=== PATIENT | male | born 1960 | race Caucasian/White ===

== ENCOUNTER → 2016-12-16 | Outpatient (CLI) | payer BC | LOC: MW.CHFP 13:14 | PROVIDERS: ATTEND Emergency Medicine | DX: M17.11 Unilateral primary osteoarthritis, right knee (principal) | CPT/HCPCS: 36415; 85027 ==

== ENCOUNTER 2017-06-17 10:51 | Day surgery (SDC) | payer BC ==
[~2017-06-17 10:51] MED LIST: Lactated Ringers 1,000 ML IV SCH; Lidocaine 2% 5 ML SDV ONE; Propofol 200 MG/20 ML SDV ONE; Sodium Chloride 0.9% 10 ML Syringe FLUSH PRN; Sodium Chloride 0.9% 2.5 ML Syringe FLUSH PRN; fentaNYL 100 MCG/2 ML SDV ONE
--- NOTE | 2017-06-17 12:42 | PCM.PREANE ---
Preanesthetic Assessment - Anesthesia/Transfusion/Family Hx Anesthesia History: Prior Anesthesia Without Reaction Other Type of Anesthesia Reaction Comment: states he was hard to wake after hernia repair Family History of Anesthesia Reaction: No Transfusion History: No Prior Transfusion(s) - Review of Systems General: No Symptoms Pulmonary: No Symptoms Cardiovascular: No Symptoms Gastrointestinal: No Symptoms Neurological: No Symptoms Other: Reports: None - Physical Assessment NPO Status Date: 06/17/17 NPO Status Time: 06:00 O2 Sat by Pulse Oximetry: 98 Respiratory Rate: 16 Vital Signs: Last Vital Signs Temp 36.3 C 06/17/17 11:19 Pulse 53 L 06/17/17 11:19 Resp 16 06/17/17 11:19 BP 106/66 06/17/17 11:19 Pulse Ox 98 06/17/17 11:19 Height: 1.75 m Weight: 97.522 kg ASA Class: 2 Mental Status: Alert & Oriented x3 Airway Class: Mallampati = 2 Dentition: Reports: Normal Dentition ROM/Head Extension: Full Lungs: Clear to Auscultation, Normal Respiratory Effort Cardiovascular: Regular Rate, Regular Rhythm - Allergies Allergies/Adverse Reactions: Allergies Allergy/AdvReac Type Severity Reaction Status Date / Time phentermine Allergy Rash Verified 06/17/17 11:16 - Anesthesia Plan Pre-Op Medication Ordered: None - Acknowledgements Anesthesia Type Planned: MAC Pt an Appropriate Candidate for the Planned Anesthesia: Yes Alternatives and Risks of Anesthesia Discussed w Pt/Guardian: Yes Pt/Guardian Understands and Agrees with Anesthesia Plan: Yes PreAnesthesia Questionnaire Other HEENT History: wears glasses Cardiovascular History: Reports: None Respiratory History: Reports: Sleep Apnea Other Respiratory History: not since weight loss Gastrointestinal History: Reports: Colon Polyp Other Gastrointestinal History: gastric sleeve surgery and umbilical hernia repairs Genitourinary History: Reports: Renal Calculus Other Genitourinary History: passed some-some removed Musculoskeletal History: Reports: Arthritis Neurological History: Reports: Other (See Below) Other Neuro History: hx of motion sickness Psychiatric History: Reports: None Endocrine/Metabolic History: Reports: Obesity/BMI 30+ Hematologic History: Reports: Polycythemia Other Hematologic History: polycythermia Immunologic History: Reports: None Oncologic (Cancer) History: Reports: None Dermatologic History: Reports: None - Past Surgical History Head Surgeries/Procedures: Reports: None HEENT Surgical History: Reports: Tonsillectomy GI Surgical History: Reports: Bariatric Procedure, Colonoscopy, Hernia, Abdominal Other GI Surgeries/Procedures: umbilical hernia repair Male Surgical History: Reports: Lithotripsy (ESWL) Neurological Surgical History: Reports: C-Spine Other Neurological Surgeries/Procedures: fusion, unsure if hardware used Musculoskeletal Surgical History: Reports: Arthroscopic Knee, Knee Replacement Other Musculoskeletal Surgeries/Procedures:: hx of left ACL repair, hc of left TKA - SUBSTANCE USE Smoking Status *Q: Former Smoker Tobacco Use Within Last Twelve Months: No Recreational Drug Use History: No - HOME MEDS Home Medications: Home Meds Cholecalciferol (Vitamin D3) [Vitamin D3] 5,000 unit PO DAILY 04/28/16 [History] Cyanocobalamin (Vitamin B-12) [Vitamin B-12] 2,000 mcg PO DAILY 04/28/16 [ History] Pantoprazole Sodium 40 mg PO ASDIRECTED 04/28/16 [History] Pediatric Multivit Comb #25/Fa [Flintstones Multivit Chew Tab] 1 tab.chew PO DAILY 04/28/16 [History] - CURRENT (IN HOUSE) MEDS Current Meds: Current Medications Lactated Ringer's (Ringers, Lactated) 1,000 mls @ 125 mls/hr IV ASDIRECTED [facility] Last Admin: 06/17/17 11:20 Dose: 125 mls/hr Sodium Chloride (Saline Flush) 10 ml FLUSH ASDIRECTED PRN PRN Reason: Keep Vein Open Sodium Chloride (Saline Flush) 2.5 ml FLUSH ASDIRECTED PRN PRN Reason: Keep Vein Open Discontinued Medications Fentanyl (Sublimaze) Confirm Administered Dose 100 mcg .ROUTE .STK-MED ONE Stop: 06/17/17 09:49 Lidocaine (Xylocaine-Mpf 2%) Confirm Administered Dose 5 ml .ROUTE .STK-MED ONE Stop: 06/17/17 09:48 Propofol (Diprivan 20 Ml) Confirm Administered Dose 400 mg .ROUTE .STK-MED ONE Stop: 06/17/17 09:49
[2017-06-17] MEDS ORDERED: Glycopyrrolate 0.2 MG/ML SDV ONE ×2 (12:58→13:30)
[2017-06-17] MEDS ORDERED: ePHEDrine 50 MG/ML SDV ONE (13:25)
[2017-06-17] MEDS ORDERED: Propofol 200 MG/20 ML SDV ONE (13:30)
--- NOTE | 2017-06-17 13:58 | PCM.OPNOTE ---
- General Post-Op/Procedure Note Date of Surgery/Procedure: 06/17/17 Operative Procedure(s): colonoscopy Findings: 1cm sigmoid colon polyp at 50 cm, 2-3 mm descending colon polyp Pre Op Diagnosis: Hx of tubulovillous adenoma Post-Op Diagnosis: Sigmoid colon polyp, descending colon polyp Anesthesia Technique: MAC Primary Surgeon: Arianna Nelson Condition: Good
[2017-06-17 14:15] VITALS: BP 115/78
--- NOTE | 2017-06-17 14:31 | PCM.POSTAN ---
POST ANESTHESIA ASSESSMENT - MENTAL STATUS Mental Status: Alert, Oriented - RESPIRATORY Respiratory Status: Respiratory Rate WNL, Airway Patent, O2 Saturation Stable - CARDIOVASCULAR CV Status: Pulse Rate WNL, Blood Pressure Stable - GASTROINTESTINAL GI Status: No Symptoms - POST OP HYDRATION Hydration Status: Adequate & Stable
--- NOTE | 2017-06-17 14:31 | PCM48HPAN ---
Post Anesthesia Note - EVALUATION WITHIN 48HRS OF ANESTHETIC Vital Signs in Normal Range: Yes Patient Participated in Evaluation: Yes Respiratory Function Stable: Yes Airway Patent: Yes Cardiovascular Function Stable: Yes Hydration Status Stable: Yes Pain Control Satisfactory: Yes Nausea and Vomiting Control Satisfactory: Yes Mental Status Recovered: Yes
--- NOTE | 2017-06-17 20:22 | OR ---
SURGEON: ARIANNA NELSON MD DATE OF PROCEDURE: 06/17/2017 PREOPERATIVE DIAGNOSIS: History of tubulovillous adenoma of the sigmoid colon. POSTOPERATIVE DIAGNOSES: 1. Descending colon polyp. 2. 1 cm sigmoid colon polyp. 3. Diverticulosis. PROCEDURE PERFORMED: Diagnostic colonoscopy. ENDOSCOPIST: Dr. Arianna Nelson. ANESTHESIA: MAC. INSTRUMENT USED: Olympus colonoscope. EXTENT OF EXAM: To the cecum. PREPARATION: Good. LIMITATIONS: None. INDICATION FOR EXAMINATION: The patient is a 56-year-old male, who presents to the office one year after a previous colonoscopy. At that time, he was found to have a 2 cm tubulovillous adenoma in the sigmoid colon. It was recommended he follow up in 1 year for a repeat scope. We discussed the procedure, expected perioperative course, and risks including bleeding, infection, damage to surrounding structures, including perforation. The patient verbalized understanding and wishes to proceed. PROCEDURE IN DETAIL: The patient was brought into the endoscopy suite and placed in a left lateral decubitus position. A time-out was completed verifying the patient's name, age, date of , allergies, and procedure to be performed. Monitored anesthesia care was induced and continuous oxygen was provided via nasal cannula throughout the procedure. After adequate sedation was achieved. A well lubricated colonoscope was inserted into the rectum and advanced under direct visualization to the level of cecum. The cecum was identified by both visual and anatomic landmarks. A photograph was taken of the cecal cap, but I was unable to retroflex the scope within the cecum. The scope was then straightened out and fully withdrawn while examining the color, texture, anatomy, and integrity of the mucosa from the cecum to the anal canal. The patient was found to have a 1 to 2 mm sessile polyp within the descending colon. This was removed using a cold biopsy forceps. The patient was then found to have sigmoid colon polyp at 50 cm that appeared to be about 1 cm in size and slightly sessile. A wire loop was placed around the polyp and used with cautery to excise the majority of the mass. The mass was then removed using a [place] Net. A cold biopsy forceps was used to take biopsies of the residual tumor left at the base. Once no gross polyp was apparent, I stopped my dissection. Hemostasis was achieved. The remainder of the colon appeared normal. The scope was brought into the rectum and retroflexed to allow visualization of the anal canal opening. This appeared normal and a photograph was taken. The scope was then straightened out and removed from the patient. The cecum to anus time was 33 minutes. Of note, the patient did have one diverticula just proximal to the sigmoid colon polyp. The patient tolerated the procedure well and was taken to PACU in stable condition. ENDOSCOPIC DIAGNOSES: 1. Diverticulosis. 2. Descending colon polyp. 3. Sigmoid colon polyp. RECOMMENDATION: Follow up in clinic in 2 weeks. JULIANE VIDAL /[id number]
== END 2017-06-17 14:20 | disposition home or self-care (01) ==
LOC: MW.SDS 10:51
PROVIDERS: ATTEND Surgery
DX: D12.4 Benign neoplasm of descending colon (principal); D12.5 Benign neoplasm of sigmoid colon; K57.30 Diverticulosis of large intestine without perforation or abscess without bleeding; K92.1 Melena; G47.30 Sleep apnea, unspecified; D75.1 Secondary polycythemia; M17.11 Unilateral primary osteoarthritis, right knee; E66.9 Obesity, unspecified; Z68.31 Body mass index [BMI] 31.0-31.9, adult; Z87.891 Personal history of nicotine dependence; Z86.010 Personal history of colon polyps; Z88.8 Allergy status to other drugs, medicaments and biological substances; Z79.899 Other long term (current) drug therapy; Z98.84 Bariatric surgery status; Z98.890 Other specified postprocedural states; Z99.89 Dependence on other enabling machines and devices; Z98.1 Arthrodesis status
CPT/HCPCS: 45380; 45385; J3010; J7120; 88305; J2704

== ENCOUNTER 2017-12-15 09:39 | Day surgery (SDC) | payer BC ==
[~2017-12-15 09:39] MED LIST changes: +Midazolam 1 MG/ML 2 ML SDV ONE
--- NOTE | 2017-12-15 10:44 | PCM.PREANE ---
Preanesthetic Assessment - Anesthesia/Transfusion/Family Hx Anesthesia History: Prior Anesthesia Without Reaction Other Type of Anesthesia Reaction Comment: states he was hard to wake after hernia repair Family History of Anesthesia Reaction: No Transfusion History: No Prior Transfusion(s) - Review of Systems General: No Symptoms Pulmonary: No Symptoms Cardiovascular: No Symptoms Neurological: No Symptoms Other: Reports: None - Physical Assessment NPO Status Date: 12/14/17 O2 Sat by Pulse Oximetry: 96 Respiratory Rate: 16 Vital Signs: Last Vital Signs Temp 36.4 C 12/15/17 10:16 Pulse 53 L 12/15/17 10:16 Resp 16 12/15/17 10:16 BP 122/78 12/15/17 10:16 Pulse Ox 96 12/15/17 10:16 Height: 1.75 m Weight: 96.615 kg ASA Class: 2 Mental Status: Alert & Oriented x3 Airway Class: Mallampati = 1 Dentition: Reports: Normal Dentition ROM/Head Extension: Full Lungs: Clear to Auscultation, Normal Respiratory Effort Cardiovascular: Regular Rate, Regular Rhythm - Allergies Allergies/Adverse Reactions: Allergies Allergy/AdvReac Type Severity Reaction Status Date / Time phentermine Allergy Hives Verified 12/10/17 11:11 - Acknowledgements Anesthesia Type Planned: MAC (JULIANA has reso;pham since wt loss/gastroc sleeve surg. Still has GERD) Pt an Appropriate Candidate for the Planned Anesthesia: Yes Alternatives and Risks of Anesthesia Discussed w Pt/Guardian: Yes Pt/Guardian Understands and Agrees with Anesthesia Plan: Yes PreAnesthesia Questionnaire Other HEENT History: wears glasses Cardiovascular History: Reports: None Respiratory History: Reports: Sleep Apnea Other Respiratory History: previous sleep apnea, no longer has following weight loss Gastrointestinal History: Reports: GERD Other Gastrointestinal History: gastric sleeve surgery and umbilical hernia repairs Genitourinary History: Reports: Renal Calculus Other Genitourinary History: passed some-some removed Musculoskeletal History: Reports: Arthritis Neurological History: Reports: Other (See Below) Other Neuro History: hx of motion sickness Psychiatric History: Reports: None Endocrine/Metabolic History: Reports: Obesity/BMI 30+ Hematologic History: Reports: Polycythemia Other Hematologic History: polycythermia Immunologic History: Reports: None Oncologic (Cancer) History: Reports: None Dermatologic History: Reports: None - Past Surgical History Head Surgeries/Procedures: Reports: None HEENT Surgical History: Reports: Tonsillectomy GI Surgical History: Reports: Bariatric Procedure, Hernia Repair/Other Other GI Surgeries/Procedures: umbilical hernia repair Male Surgical History: Reports: Kidney Stone Extraction Neurological Surgical History: Reports: C-Spine Other Neurological Surgeries/Procedures: fusion, unsure if hardware used Musculoskeletal Surgical History: Reports: Arthroscopic Knee, Knee Replacement Other Musculoskeletal Surgeries/Procedures:: hx left knee arthroscopy and left total knee arthroplasty - SUBSTANCE USE Smoking Status *Q: Former Smoker Tobacco Use Within Last Twelve Months: No Recreational Drug Use History: No - HOME MEDS Home Medications: Home Meds Cholecalciferol (Vitamin D3) [Vitamin D3] 5,000 unit PO DAILY 04/28/16 [History] Cyanocobalamin (Vitamin B-12) [Vitamin B-12] 2,000 mcg PO DAILY 04/28/16 [ History] Pantoprazole Sodium 40 mg PO ASDIRECTED 04/28/16 [History] Pediatric Multivit Comb #25/Fa [Flintstones Multivit Chew Tab] 1 tab.chew PO DAILY 04/28/16 [History] - CURRENT (IN HOUSE) MEDS Current Meds: Current Medications Lactated Ringer's (Ringers, Lactated) 1,000 mls @ 125 mls/hr IV ASDIRECTED [facility] Last Admin: 12/15/17 10:11 Dose: 125 mls/hr Sodium Chloride (Saline Flush) 10 ml FLUSH ASDIRECTED PRN PRN Reason: Keep Vein Open Sodium Chloride (Saline Flush) 2.5 ml FLUSH ASDIRECTED PRN PRN Reason: Keep Vein Open Sodium Chloride (Saline Flush) 10 ml FLUSH ASDIRECTED PRN PRN Reason: Keep Vein Open Sodium Chloride (Saline Flush) 2.5 ml FLUSH ASDIRECTED PRN PRN Reason: Keep Vein Open Discontinued Medications Fentanyl (Sublimaze) Confirm Administered Dose 100 mcg .ROUTE .STK-MED ONE Stop: 12/15/17 08:20 Lidocaine (Xylocaine-Mpf 2%) Confirm Administered Dose 5 ml .ROUTE .STK-MED ONE Stop: 12/15/17 08:20 Midazolam HCl (Versed 1 Mg/Ml) Confirm Administered Dose 2 mg .ROUTE .STK-MED ONE Stop: 12/15/17 08:20 Propofol (Diprivan 20 Ml) Confirm Administered Dose 400 mg .ROUTE .STK-MED ONE Stop: 12/15/17 08:20
[2017-12-15] MEDS ORDERED: Glycopyrrolate 0.2 MG/ML SDV ONE ×2 (11:59→12:04)
[2017-12-15] MEDS ORDERED: Propofol 200 MG/20 ML SDV ONE (12:34)
--- NOTE | 2017-12-15 12:45 | PCM.OPNOTE ---
- General Post-Op/Procedure Note Date of Surgery/Procedure: 12/15/17 Operative Procedure(s): Diagnostic EGD and colonoscopy Findings: Rectal polyp, sigmoid colon polyps x 2, gastritis, hyperplastic gastric polyps Pre Op Diagnosis: Melena Post-Op Diagnosis: Gastritis, hyperplastic gastric polyps, rectal polyp, sigmoid colon polyp x 2 Anesthesia Technique: [facility] [place] Primary Surgeon: Arianna Nelson Condition: Good
--- NOTE | 2017-12-15 13:17 | PCM48HPAN ---
Post Anesthesia Note - EVALUATION WITHIN 48HRS OF ANESTHETIC Vital Signs in Normal Range: Yes Patient Participated in Evaluation: Yes Respiratory Function Stable: Yes Airway Patent: Yes Cardiovascular Function Stable: Yes Hydration Status Stable: Yes Pain Control Satisfactory: Yes Nausea and Vomiting Control Satisfactory: Yes Mental Status Recovered: Yes Resp Rate: 13
[2017-12-15 14:39] VITALS: BP 90/69
--- NOTE | 2017-12-16 10:16 | OR ---
SURGEON: RACHEL CANADA MD DATE OF PROCEDURE: 12/15/2017 PREOPERATIVE DIAGNOSIS: Melena . POSTOPERATIVE DIAGNOSES: 1. Gastritis. 2. Gastric polyp. 3. Rectal polyp. 4. Sigmoid colon polyp x2. PROCEDURE PERFORMED: Diagnostic esophagogastroduodenoscopy and colonoscopy. ANESTHESIA: MAC. INSTRUMENT USED: Olympus endoscope and colonoscope. EXTENT OF EXAM: To the second portion of duodenum, to the cecum. PREPARATION: Good. LIMITATIONS: None. INDICATION FOR EXAMINATION: The patient is a 57-year-old male who presents to the clinic with intermittent episodes of melena. The decision was made to perform a diagnostic EGD and colonoscopy. We discussed the procedure, expected perioperative course, and risks including bleeding, infection, or damage to surrounding structures including perforation. The patient verbalized understanding and wishes to proceed. PROCEDURE IN DETAIL: The patient was brought to the endoscopy suite and placed in a left lateral decubitus position. A time-out was completed verifying the patient's name, age, date of , allergies, and procedure to be performed. A bite block was placed in the patient's mouth and monitored anesthesia care induced. Continuous oxygen was provided via nasal cannula throughout the procedure. After adequate sedation was achieved, a well-lubricated endoscope was placed in the patient's mouth and advanced under direct visualization to the level of second portion of the duodenum. This appeared normal and a photograph was taken. The scope was then fully withdrawn while examining the color, texture, anatomy, and integrity of the mucosa of the upper GI tract. The patient was noted to have some inflammation around the pylorus. A biopsy was taken of the area of maximal inflammation. The scope was brought into the stomach and a photograph taken of the GE junction as well as the pylorus. The patient has had a previous sleeve gastrectomy and changes associated with that were noted. The gastric mucosa was noted to have a hyperplastic polyp mainly centered around the staple line. The largest of these polyps was removed and sent to the pathologist labeled as gastric polyp. Biopsies were taken of the gastric antrum, body, and fundus and sent for H. pylori testing and histologic review. The scope was then brought into the distal esophagus. The distal esophagus appeared mildly tortuous; however, there was no evidence of any inflammation or hiatal hernia. A photograph was taken. The remainder of the esophageal mucosa was normal. The scope was removed and this portion of the procedure was terminated. A digital rectal exam was performed. This exam was within normal limits. A well lubricated colonoscope was inserted in the rectum and advanced under direct visualization to the level of cecum. The cecum was identified by both visual and anatomic landmarks. A photograph was taken of the cecal cap. I was able to partially retroflex the scope within the cecum, but did not take a picture. The scope was then fully withdrawn while examining the color, texture, anatomy, and integrity of the mucosa from the cecum to the anal canal. The patient was found to have 2 polyps within the sigmoid colon. These were removed using a hot snare. The patient was then found to have a polyp within the rectum. This was removed using a cold biopsy forceps. The scope was then retroflexed within the rectum to allow visualization of the anal canal opening. This appeared normal and a photograph was taken. The scope was then straightened out and removed from the patient. The cecum to anus time was greater than 20 minutes. The patient tolerated the procedure well and was taken to PACU in stable condition. ENDOSCOPIC DIAGNOSES: 1. Gastritis. 2. Gastric polyp. 3. Rectal polyp. 4. Sigmoid colon polyp x2. RECOMMENDATIONS: Follow up in clinic in 2 weeks. The patient is currently on a PPI. We will follow up on the biopsy results of the stomach and determine any further workup from there. JULIANE VIDAL /[id number]
== END 2017-12-15 13:50 | disposition home or self-care (01) ==
LOC: MW.SDS 09:39
PROVIDERS: ATTEND Surgery
DX: D12.5 Benign neoplasm of sigmoid colon (principal); K62.1 Rectal polyp; K31.7 Polyp of stomach and duodenum; K29.50 Unspecified chronic gastritis without bleeding; K92.1 Melena; E66.9 Obesity, unspecified; Z68.31 Body mass index [BMI] 31.0-31.9, adult; Z87.891 Personal history of nicotine dependence; K21.9 Gastro-esophageal reflux disease without esophagitis; Z79.899 Other long term (current) drug therapy; Z88.8 Allergy status to other drugs, medicaments and biological substances; Z98.84 Bariatric surgery status
CPT/HCPCS: 43239; 45380; 45385; J2250; J3010; J7120; J2704

== ENCOUNTER 2019-03-15 09:10 | Day surgery (SDC) | payer BC ==
[~2019-03-15 09:10] MED LIST changes: -Lidocaine 2% 5 ML SDV ONE; -Midazolam 1 MG/ML 2 ML SDV ONE; -Propofol 200 MG/20 ML SDV ONE; +Sodium Chloride 0.9% 10 ML SDV IV PRN; -fentaNYL 100 MCG/2 ML SDV ONE
--- NOTE | 2019-03-15 10:03 | PCM.PREANE ---
Preanesthetic Assessment - Anesthesia/Transfusion/Family Hx Anesthesia History: Prior Anesthesia Without Reaction Other Type of Anesthesia Reaction Comment: states he was hard to wake after hernia repair Family History of Anesthesia Reaction: No Transfusion History: No Prior Transfusion(s) - Review of Systems General: No Symptoms Pulmonary: No Symptoms Cardiovascular: No Symptoms Gastrointestinal: No Symptoms Neurological: No Symptoms Other: Reports: None - Physical Assessment Height: 5 ft 9 in Weight: 99.337 kg ASA Class: 2 Mental Status: Alert & Oriented x3 Airway Class: Mallampati = 2 Dentition: Reports: Normal Dentition ROM/Head Extension: Full Lungs: Clear to Auscultation, Normal Respiratory Effort Cardiovascular: Regular Rate, Regular Rhythm - Allergies Allergies/Adverse Reactions: Allergies Allergy/AdvReac Type Severity Reaction Status Date / Time phentermine Allergy Hives Verified 03/09/19 16:37 - Blood Blood Available: No - Anesthesia Plan Pre-Op Medication Ordered: None - Acknowledgements Anesthesia Type Planned: General Anesthesia Pt an Appropriate Candidate for the Planned Anesthesia: Yes Alternatives and Risks of Anesthesia Discussed w Pt/Guardian: Yes Pt/Guardian Understands and Agrees with Anesthesia Plan: Yes Additional Comments: PMH: polycythemia, JULIANA resolved after 120# weight loss, cervical radicolopathy resolved with surgical decompression PLAN: tiva PreAnesthesia Questionnaire HEENT History: Reports: Other (See Below) Other HEENT History: wears glasses Cardiovascular History: Reports: None Respiratory History: Reports: Sleep Apnea Other Respiratory History: does not use a CPAP since bariatric surgery Gastrointestinal History: Reports: Colon Polyp, GERD Other Gastrointestinal History: gastric sleeve surgery and umbilical hernia repairs Genitourinary History: Reports: Renal Calculus Other Genitourinary History: passed some-some removed Musculoskeletal History: Reports: Back Pain, Chronic Neurological History: Reports: Other (See Below) Other Neuro History: hc of motion sickness Psychiatric History: Reports: None Endocrine/Metabolic History: Reports: Obesity/BMI 30+ Hematologic History: Reports: Polycythemia Other Hematologic History: last phlebotomy was in December 2018 Immunologic History: Reports: None Oncologic (Cancer) History: Reports: None Dermatologic History: Reports: None - Past Surgical History Head Surgeries/Procedures: Reports: None HEENT Surgical History: Reports: Tonsillectomy GI Surgical History: Reports: Colonoscopy, Hernia, Abdominal Other GI Surgeries/Procedures: umbilical hernia repair Male Surgical History: Reports: Lithotripsy (ESWL) Neurological Surgical History: Reports: C-Spine, Other (See Below) Other Neurological Surgeries/Procedures: hx of bone chips removed from neck - no hardware Musculoskeletal Surgical History: Reports: Knee Replacement, Other (See Below) Other Musculoskeletal Surgeries/Procedures:: left TKA, hx of ACL repair left knee - SUBSTANCE USE Smoking Status *Q: Current Every Day Smoker Tobacco Use Within Last Twelve Months: Cigarettes Recreational Drug Use History: No - HOME MEDS Home Medications: Home Meds Cholecalciferol (Vitamin D3) [Vitamin D3] 5,000 unit PO DAILY 04/28/16 [History] Cyanocobalamin (Vitamin B-12) [Vitamin B-12] 2,000 mcg PO DAILY 04/28/16 [ History] Pantoprazole Sodium 40 mg PO ASDIRECTED 04/28/16 [History] Pediatric Multivit Comb #25/Fa [Flintstones Multivit Chew Tab] 1 tab.chew PO DAILY 04/28/16 [History] - CURRENT (IN HOUSE) MEDS Current Meds: Current Medications Lactated Ringer's (Ringers, Lactated) 1,000 mls @ 125 mls/hr IV ASDIRECTED [facility] Last Admin: 03/15/19 09:54 Dose: 125 mls/hr Sodium Chloride (Saline Flush) 10 ml FLUSH ASDIRECTED PRN PRN Reason: Keep Vein Open Sodium Chloride (Saline Flush) 2.5 ml FLUSH ASDIRECTED PRN PRN Reason: Keep Vein Open Sodium Chloride (Saline Flush) 10 ml FLUSH ASDIRECTED PRN PRN Reason: Keep Vein Open Sodium Chloride (Saline Flush) 2.5 ml FLUSH ASDIRECTED PRN PRN Reason: Keep Vein Open Sodium Chloride (Normal Saline) 10 ml IV ASDIRECTED PRN PRN Reason: IV Use
[2019-03-15] MEDS ORDERED: Propofol 200 MG/20 ML SDV ONE ×2 (10:16→10:58)
[2019-03-15] MEDS ORDERED: Lidocaine 2% 5 ML SDV ONE (10:16)
[2019-03-15] MEDS ORDERED: fentaNYL 100 MCG/2 ML SDV ONE (10:16)
--- NOTE | 2019-03-15 11:09 | PCM.OPNOTE ---
- General Post-Op/Procedure Note Date of Surgery/Procedure: 03/15/19 Operative Procedure(s): diagnostic EGD and colonoscopy Findings: gastritis, transverse colon polyp, inflamed sigmoid diverticula Pre Op Diagnosis: melena Post-Op Diagnosis: gastritis, transverse colon polyp, inflamed sigmoid diverticula Anesthesia Technique: [facility] [place], [place] Primary Surgeon: Arianna Nelson Pathology: several biopsies of stomach (antrum, body, and fundus)m transverse colon polyp, inflamed sigmoid diverticula Condition: Good
--- NOTE | 2019-03-15 11:34 | PCM.POSTAN ---
POST ANESTHESIA ASSESSMENT - MENTAL STATUS Mental Status: Alert, Oriented - VITAL SIGNS Vital Signs: Last Vital Signs Temp 97.0 F 03/15/19 11:10 Pulse 48 L 03/15/19 11:25 Resp 12 03/15/19 11:25 BP 92/58 L 03/15/19 11:25 Pulse Ox 97 03/15/19 11:25 - RESPIRATORY Respiratory Status: Respiratory Rate WNL, Airway Patent, O2 Saturation Stable - CARDIOVASCULAR CV Status: Blood Pressure Stable, Slow Pulse Rate (stable bradycardia) - GASTROINTESTINAL GI Status: No Symptoms - PAIN Pain Score: 0 - POST OP HYDRATION Hydration Status: Adequate & Stable - OBSERVATIONS Free Text/Narrative:: Pt stable for discharge to phase II recovery with no noted complications.
[2019-03-15 11:49] VITALS: BP 110/57; PULSE 40
--- NOTE | 2019-03-15 12:31 | PCM48HPAN ---
Post Anesthesia Note - EVALUATION WITHIN 48HRS OF ANESTHETIC Vital Signs in Normal Range: Yes Patient Participated in Evaluation: Yes Respiratory Function Stable: Yes Airway Patent: Yes Cardiovascular Function Stable: Yes Hydration Status Stable: Yes Pain Control Satisfactory: Yes Nausea and Vomiting Control Satisfactory: Yes Mental Status Recovered: Yes Vital Signs: Last Vital Signs Temp 97.0 F 03/15/19 11:10 Pulse 40 L 03/15/19 11:41 Resp 16 03/15/19 11:41 BP 110/57 L 03/15/19 11:41 Pulse Ox 99 03/15/19 11:41
--- NOTE | 2019-03-16 13:33 | OR ---
SURGEON: ARIANNA NELSON MD DATE OF PROCEDURE: 03/15/2019 PREOPERATIVE DIAGNOSES: Change in bowel habits, melena. POSTOPERATIVE DIAGNOSES: 1. Gastritis. 2. Sigmoid colon diverticulosis. 3. Transverse colon polyp. PROCEDURES PERFORMED: Diagnostic esophagogastroduodenoscopy and colonoscopy. PRIMARY SURGEON: Arianna Nelson MD. ANESTHESIA: MAC. INSTRUMENTS USED: Olympus endoscope, Olympus colonoscope. EXTENT OF EXAM: To the second portion of duodenum, to the cecum. PREPARATION: Good. LIMITATIONS: None. INDICATIONS FOR EXAMINATION: The patient is a 58-year-old male who presents with a change in his bowel habits. He has been experiencing melena. His hemoglobin is stable, but the patient does have polycythemia vera. The decision was made to proceed with diagnostic EGD and colonoscopy. I explained the procedures; expected perioperative course; and risks including bleeding, infection, or damage to surrounding structures including perforation. The patient verbalized understanding and wishes to proceed. PROCEDURE IN DETAIL: The patient was brought into the endoscopy suite and placed in a left lateral decubitus position. A time-out was completed verifying the patient's name, age, date of , allergies, and procedure to be performed. A bite block was placed in the patient's mouth. Monitored anesthesia care was induced and continuous oxygen was provided via nasal cannula throughout the procedure. After adequate sedation was achieved, a well-lubricated endoscope was placed in the patient's mouth and advanced under direct visualization to the second portion of duodenum. This appeared normal and a photograph was taken. The scope was then fully withdrawn while examining the color, texture, anatomy, and integrity mucosa of the upper GI tract. The duodenum appeared normal. The scope was brought into the stomach. The patient has a history of gastric sleeve, and I could see the anatomical differences because of this. A photograph was taken of the pylorus as well as the GE junction. Both appeared normal. The gastric mucosa throughout the stomach appeared chronically inflamed. Biopsies were taken of the gastric antrum, body, and fundus and sent for histologic review and H. pylori testing. The scope was then brought into the distal esophagus and a photograph was taken of the Z-line. This appeared normal. The remainder of the esophagus appeared free of pathology. The scope was removed and this portion of the procedure terminated. A digital rectal exam was performed. This exam was within normal limits. A well-lubricated colonoscope was inserted in the rectum and advanced under direct visualization to the level of the cecum. The cecum was identified by both visual and anatomic landmarks. A photograph was taken of the cecal cap, but unfortunately, I could not retroflex the scope within the cecum due to looping of the scope more proximally. The scope was then fully withdrawn while examining the color, texture, anatomy, and integrity of the mucosa from the cecum to the anal canal. In the transverse colon, at 60 cm, the patient was found to have a sessile polyp. This required several bites from cold biopsy forceps to remove it. Given its sessile nature, I injected 1 mL of ink underneath the mucosa for identification in the future. The pathology specimen was sent, labeled as transverse colon polyp. The patient did have evidence of sigmoid colon diverticulosis at the very distal sigmoid colon. There was an inflamed appearing diverticula. A biopsy of this was taken and sent to pathology, labeled as sigmoid colon biopsy. The rectum appeared normal, and I took the scope and retroflexed to visualize the anal canal opening. This appeared normal. A photograph was taken. The scope was straightened out and fully withdrawn. Cecum to anus time was 24 minutes. The patient tolerated the procedure well and was taken to PACU in stable condition. ENDOSCOPIC DIAGNOSES: 1. Gastritis. 2. Sigmoid colon diverticulosis. 3. Transverse colon polyp. RECOMMENDATIONS: Follow up in clinic in 2 weeks. JULIANE VIDAL /[id number]
== END 2019-03-15 12:05 | disposition home or self-care (01) ==
LOC: MW.SDS 09:10
PROVIDERS: ATTEND Surgery
DX: K57.33 Diverticulitis of large intestine without perforation or abscess with bleeding (principal); K29.51 Unspecified chronic gastritis with bleeding; D12.3 Benign neoplasm of transverse colon; K31.89 Other diseases of stomach and duodenum; K21.9 Gastro-esophageal reflux disease without esophagitis; D45 Polycythemia vera; E66.9 Obesity, unspecified; M19.012 Primary osteoarthritis, left shoulder; M17.11 Unilateral primary osteoarthritis, right knee; Z88.8 Allergy status to other drugs, medicaments and biological substances; Z68.32 Body mass index [BMI] 32.0-32.9, adult; Z98.84 Bariatric surgery status; Z86.010 Personal history of colon polyps; Z87.891 Personal history of nicotine dependence; Z83.71 Family history of colonic polyps; Z79.899 Other long term (current) drug therapy
CPT/HCPCS: 43239; 45380; G0145; J2001; J2704; J3010; J7120; 88305; 88312

== ENCOUNTER 2023-07-08 08:58 | Inpatient (IN) | payer BC ==
[~2023-07-08 08:58] MED LIST changes: +Famotidine 20 MG/2 ML SDV IVPUSH SCH; -Lactated Ringers 1,000 ML IV SCH; +Ropivacaine 49.25 ML, Ketorolac 30 MG, EPINEPHrine 0.5 MG, cloNIDine 80 MCG in Sodium C... INJECT SCH; -Sodium Chloride 0.9% 10 ML SDV IV PRN; +Tranexamic Acid IN NACL,ISO-OS 1,000 MG in Premix Bag 1 BAG IV SCH
[2023-07-08] MEDS: Lactated Ringers 1,000 ML IV SCH ×2 (09:20→14:13)
[2023-07-08] MEDS ORDERED: Lidocaine 2% 5 ML SDV ONE ×2 (09:21→10:44)
[2023-07-08] MEDS ORDERED: Ondansetron 4 MG/2 ML SDV ONE (09:21)
[2023-07-08] MEDS ORDERED: Tranexamic Acid 1,000 MG/10 ML Vial ONE (09:21)
[2023-07-08] MEDS ORDERED: Dexamethasone 4 MG/ML 5 ML MDV ONE (09:21)
[2023-07-08] MEDS ORDERED: ceFAZolin 1 GM Vial ONE (09:22)
[2023-07-08] MEDS ORDERED: dexmedeTOMIDine HCl 200 MCG/2 ML SDV ONE (09:22)
[2023-07-08] MEDS ORDERED: propofoL 100 ML ONE (09:24)
[2023-07-08] MEDS ORDERED: Phenylephrine HCl 0.5 MG/5 ML AMP ONE (09:37)
[2023-07-08] MEDS ORDERED: HYDROmorphone 1 MG/ML Syringe IVPUSH PRN (09:39)
[2023-07-08] MEDS ORDERED: droPERidol 5 MG/2 ML SDV IVPUSH PRN (09:39)
[2023-07-08] MEDS ORDERED: Metoclopramide 10 MG/2 ML SDV IVPUSH PRN (09:39)
[2023-07-08] MEDS ORDERED: Naloxone 0.4 MG/ML SDV IVPUSH PRN (09:39)
[2023-07-08] MEDS ORDERED: fentaNYL 50 MCG/ML SDV IVPUSH PRN (09:39)
[2023-07-08] MEDS ORDERED: Ondansetron 4 MG/2 ML SDV IVPUSH PRN ×2 (09:39→12:00)
[2023-07-08] MEDS ORDERED: Albuterol 0.083% 2.5 MG/3 ML Neb Soln NEB PRN (09:39)
[2023-07-08] MEDS ORDERED: Morphine 2 MG/ML SYRINGE IVPUSH PRN ×2 (09:39→12:00)
[2023-07-08] MEDS ORDERED: Ropivacaine 0.5% 5 MG/ML 30 ML SDV ONE (10:25)
[2023-07-08] MEDS ORDERED: Glycopyrrolate 0.2 MG/ML SDV ONE (11:44)
[2023-07-08] MEDS ORDERED: Lidocaine 1% 5 ML VIAL ONE (11:45)
[2023-07-08] MEDS ORDERED: Aluminum Hydroxide/Magnesium Hydroxide/Simethicone XS Susp 30 ML Cup PO PRN (12:00)
[2023-07-08] MEDS ORDERED: oxyCODONE 5 MG Tab PO PRN (12:00)
[2023-07-08] MEDS ORDERED: diphenhydrAMINE 25 MG Cap PO PRN (12:00)
[2023-07-08] MEDS ORDERED: traMADol 50 MG Tab PO PRN (12:00)
[2023-07-08] MEDS: Acetaminophen 325 MG Tab PO SCH ×3 (14:18→20:30)
[2023-07-08] MEDS: ceFAZolin 2 GM in Sodium Chloride 0.9% 50 ML IV SCH ×2 (16:06→17:13)
[2023-07-08 18:42] LABS: BASOPHILS ABSOLUTE AUTO 0.01 K/uL (0.00-0.20); BASOPHILS PERCENT AUTO 0.1 % (0.0-1.0); HEMATOCRIT 43.1 % (42.0-52.0); HEMOGLOBIN 15.2 g/dL (14.0-18.0); IMMATURE GRAN ABSOLUTE AUTO 0.05 K/uL (0.00-0.05); IMMATURE GRAN PERCENT AUTO 0.4 % (0.0-0.4); LYMPHOCYTES PERCENT AUTO 6.3 % (24.0-44.0); MEAN CORPUSCULAR HEMOGLOBIN 32.8 pg (28.0-32.0); MEAN CORPUSCULAR HGB CONC 35.3 g/dL (32.0-36.0); MEAN CORPUSCULAR VOLUME 93.1 fL (83.0-99.0); MEAN PLATELET VOLUME 9.5 fL (9.4-12.4); MONOCYTES ABSOLUTE AUTO 0.12 K/uL (0.00-0.80); MONOCYTES PERCENT AUTO 1.1 % (0.0-8.0); NEUTROPHILS ABSOLUTE AUTO 10.29 K/uL (1.80-7.70); NEUTROPHILS PERCENT AUTO 92.1 % (41.0-71.0); PLATELET COUNT,PLT 198 K/uL (150-400); RED BLOOD CELL COUNT 4.63 M/uL (4.52-5.90); WHITE BLOOD CELL COUNT,WBC 11.17 K/uL (3.9-11.3)
[2023-07-08 19:09] LABS: CALCIUM 8.7 mg/dL (8.5-10.1); CARBON DIOXIDE,CO2 25.7 mmol/L (21.0-32.0); CREATININE 1.8 mg/dL (0.8-1.3); EST CRCL DRUG DOSING (CG) 41.46 mL/min; MAGNESIUM 2.1 mg/dL (1.8-2.4); POTASSIUM,K 4.5 mmol/L (3.5-5.1)
[2023-07-08] MEDS: Docusate Sodium 100 MG Cap PO SCH (20:30)
[2023-07-09] MEDS: Acetaminophen 325 MG Tab PO SCH ×3 (00:31→09:20)
[2023-07-09] MEDS: ceFAZolin 2 GM in Sodium Chloride 0.9% 50 ML IV SCH ×2 (00:32→01:46)
[2023-07-09 06:27] LABS: HEMATOCRIT 40.1 % (42.0-52.0); HEMOGLOBIN 14.5 g/dL (14.0-18.0)
[2023-07-09 06:49] LABS: CALCIUM 8.8 mg/dL (8.5-10.1); CARBON DIOXIDE,CO2 26.5 mmol/L (21.0-32.0); CREATININE 1.6 mg/dL (0.8-1.3); EST CRCL DRUG DOSING (CG) 46.64 mL/min; MAGNESIUM 1.9 mg/dL (1.8-2.4); POTASSIUM,K 4.9 mmol/L (3.5-5.1)
[2023-07-09] MEDS ORDERED: Pantoprazole 40 MG Tab.CR PO SCH (07:30)
[2023-07-09] MEDS ORDERED: Famotidine 20 MG Tab PO SCH (09:00)
[2023-07-09] MEDS ORDERED: Polyethylene Glycol 3350 Powder 17 GM Packet PO SCH (09:00)
[2023-07-09] MEDS ORDERED: Aspirin 325 MG Tab.EC PO SCH (09:00)
[2023-07-09] MEDS: Docusate Sodium 100 MG Cap PO SCH (09:20)
[2023-07-09 09:58] VITALS: BP 127/86; PULSE 75
== END 2023-07-09 12:10 | disposition home or self-care (01) | DRG 326 ==
LOC: MW.SDS 08:58 → MW.MS 14:30
PROVIDERS: ADMIT Orthopaedic Surgery; ATTEND Orthopaedic Surgery
PROC: 0SRC0J9 Replacement of Right Knee Joint with Synthetic Substitute, Cemented, Open Approach (ICD-10-PCS; principal; 2023-07-08 10:30)
DX: M17.11 Unilateral primary osteoarthritis, right knee (principal); G47.33 Obstructive sleep apnea (adult) (pediatric); K21.9 Gastro-esophageal reflux disease without esophagitis; D75.1 Secondary polycythemia; E78.5 Hyperlipidemia, unspecified; E66.9 Obesity, unspecified; Z96.652 Presence of left artificial knee joint; G89.29 Other chronic pain; M54.9 Dorsalgia, unspecified; Z68.36 Body mass index [BMI] 36.0-36.9, adult; Z87.442 Personal history of urinary calculi; Z98.890 Other specified postprocedural states; Z88.8 Allergy status to other drugs, medicaments and biological substances; Z98.84 Bariatric surgery status; Z90.89 Acquired absence of other organs; Z86.010 Personal history of colon polyps; Z87.891 Personal history of nicotine dependence
CPT/HCPCS: 01402; 36415; 64447; 73560-26-RT; 73560-RT; 80048; 83735; 85014; 85018; 85025; 86850; 86900; 86901; 97110-GP; 97162-GP; 97530-GP; 99222; A9270-GY; C1776; J0171; J0690; J0735; J1100; J1885; J2371; J2405; J2704; J2795; J3490; J7120